=== PATIENT | male | born 1950 | race Caucasian/White ===

== ENCOUNTER 2017-12-14 14:50 | Emergency (ER) | payer SELFPAY ==
[2017-12-14] MEDS ORDERED: SODIUM CHLORIDE 0.9% 1,000 ML IV ONE (15:11)
[2017-12-14] MEDS ORDERED: ALBUTEROL SULF 2.5 MG/0.5ML(0.5%) NEB SOLN NEB ONE (15:15)
[2017-12-14] MEDS ORDERED: IPRATROPIUM BROM 0.5 MG/2.5ML INH SOL NEB ONE (15:15)
[2017-12-14 16:09] LABS: Basophils # (auto) 0.1 uL; Basophils % (auto) 0.6 % (0.0-2.0); Eosinophils # (auto) 0.1 uL; Eosinophils % (auto) 1.5 % (0.0-7.0); Hematocrit 34.7 % (41.0-53.0); Hemoglobin 11.9 g/dL (13.5-17.5); Lymphocytes # (auto) 0.9 uL; Lymphocytes % (auto) 10.2 % (10.0-50.0); Mean Corpuscular Hemoglobin 29.5 pg (28.0-32.0); Mean Corpuscular Hgb Conc. 34.2 g/dL (32.0-36.0); Mean Corpuscular Volume 86.3 fL (80.0-100.0); Monocytes # (auto) 0.6 uL; Monocytes % (auto) 7.2 % (0.0-12.0); Neutrophils # (auto) 6.9 uL; Neutrophils % (auto) 80.5 % (37.0-80.0); Platelet Count (auto) 177 10^3/uL (140-450); Red Blood Cells 4.02 10^6/uL (4.5-5.90); Red Cell Distribution Width 13.8 % (11.8-14.3); White Blood Cell 8.6 10^3/uL (4.4-10.8)
[2017-12-14 16:19] LABS: Potassium 4.1 mmol/L (3.5-5.1)
[2017-12-14 16:22] LABS: Albumin 3.1 g/dL (3.4-5.0); BUN/Creatinine Ratio 11.7; Magnesium 2.3 mg/dL (1.6-2.6)
[2017-12-14 16:25] LABS: Bilirubin, Total 0.8 mg/dL (0.2-1.0); Total Protein 6.4 g/dL (6.4-8.2)
[2017-12-14] MEDS ORDERED: FUROSEMIDE 40 MG/4 ML VIAL IV ONE (17:00)
[2017-12-14] MEDS ORDERED: SPIRONOLACTONE 25 MG TAB PO ONE (17:00)
== END 2017-12-14 17:48 | disposition home or self-care (01) ==
LOC: ER 14:50
DX: I42.9 Cardiomyopathy, unspecified (principal); I50.9 Heart failure, unspecified; I25.10 Atherosclerotic heart disease of native coronary artery without angina pectoris; R73.9 Hyperglycemia, unspecified; E46 Unspecified protein-calorie malnutrition; Z95.810 Presence of automatic (implantable) cardiac defibrillator; Z43.0 Encounter for attention to tracheostomy
CPT/HCPCS: 31500; 36415; 71045; 80053; 83735; 84443; 85025; 94640; 94761; 96374; 99285; J1940; J7030; 93005

== ENCOUNTER 2019-10-26 22:40 | Inpatient (IN) | payer OTHER ==
[~2019-10-26] VITALS: Ht 167.6 cm; Wt 71.1 kg
[2019-10-26 23:54] LABS: Urine WBC None Seen /hpf (0 - 3)
[2019-10-26 23:58] LABS: Urine Bacteria NONE SEEN /hpf (None Seen); Urine Blood Negative /uL (Negative); Urine Specific Gravity 1.021 (1.001-1.035)
[2019-10-27 00:01] LABS: Basophils # (auto) 0 10 ^3/uL (0-0.2); Basophils % (auto) 0.5 % (0.0-2.0); Eosinophils # (auto) 0 10 ^3/uL (0-0.8); Eosinophils % (auto) 0.6 % (0.0-7.0); Hematocrit 43.1 % (41.0-53.0); Hemoglobin 14.3 g/dL (13.5-17.5); Lymphocytes % (auto) 14.9 % (10.0-50.0); Mean Corpuscular Hemoglobin 29.9 pg (28.0-32.0); Mean Corpuscular Hgb Conc. 33.2 g/dL (32.0-36.0); Monocytes # (auto) 0.5 10 ^3/uL (0-1.3); Monocytes % (auto) 7.5 % (0.0-12.0); Neutrophils % (auto) 76.5 % (37.0-80.0); Platelet Count (auto) 151 10^3/uL (140-450); Red Blood Cells 4.79 10^6/uL (4.5-5.90); Red Cell Distribution Width 14.1 % (11.8-14.3); White Blood Cell 6.5 10^3/uL (4.4-10.8)
[2019-10-27 00:15] LABS: INR 1.16 (0.9-1.15)
[2019-10-27 00:20] LABS: Albumin 3.5 g/dL (3.4-5.0); Calcium 8.8 mg/dL (8.5-10.1); Potassium 3.9 mmol/L (3.5-5.1)
[2019-10-27 00:24] LABS: BUN/Creatinine Ratio 17.5
[2019-10-27 00:26] LABS: Bilirubin, Total 0.4 mg/dL (0.2-1.0)
[2019-10-27] MEDS ORDERED: ALBUTEROL SULF HFA 90MCG INH 200DOSE IN SCH ×2 (06:00→22:00)
[2019-10-27] MEDS ORDERED: EPINEPHrine HCL 0.5 ML NEB NEB ONE (10:30)
[2019-10-27] MEDS ORDERED: DexAMETHasone SOD PHOS 4 MG/1ML SDV INJ IV ONE (10:30)
[2019-10-27] MEDS ORDERED: AZITHROMYCIN 500MG/ 250ML 250 ML IV ONE (11:30)
[2019-10-27] MEDS ORDERED: LACTULOSE 20Gm/30ML SOLN PO PRN (15:00)
[2019-10-27] MEDS ORDERED: MORPHINE SULF INJ 2 MG/ML SYRINGE 1ML IV PRN ×2 (15:00)
[2019-10-27] MEDS ORDERED: PROMETHAZINE HCL 25 MG/ML 1ML IV PRN (15:00)
[2019-10-27] MEDS ORDERED: TEMAZEPAM 15 MG CAP PO PRN (15:00)
[2019-10-27] MEDS ORDERED: ACETAMINOPHEN 500 MG TAB PO PRN (15:00)
[2019-10-27] MEDS ORDERED: ALBUTEROL SULF 2.5 MG/0.5ML(0.5%) NEB SOLN NEB PRN (15:00)
[2019-10-27] MEDS ORDERED: NITROGLYCERIN 0.4 MG SL TAB SL PRN (15:00)
[2019-10-27] MEDS ORDERED: traMADol HCL 50 MG TAB PO PRN (15:00)
[2019-10-27 15:26] LABS: CRP High Sensitivity 0.17 mg/dL (< 0.3)
[2019-10-27] MEDS: SODIUM CHLORIDE 0.9% 1,000 ML IV SCH (15:42)
[2019-10-27] MEDS ORDERED: TACR1CAP19 PO (16:22)
[2019-10-27] MEDS ORDERED: PRE1T PO (16:22)
[2019-10-27 16:26] VITALS: BP 125/90
--- NOTE | 2019-10-27 17:11 | NUR ---
ARRIVAL NOTE: PATIENT ARRIVED TO UNIT IN WHEELCHAIR ON 2L NC. PATIENT COMPLAINS OF SOB AT TIMES. PATIENT IN NO S/S OF DISTRESS AT THIS TIME. A&OX4. ORIENTED TO [facility]. PATIENT ON TELE MONITOR #1. PATIENT UPDATED ON POC. ALL QUESTIONS ANSWERED BED IN LOWEST LOCKED POSITION WITH CALL LIGHT WITHIN REACH. WILL CONTINUE CARE.
--- NOTE | 2019-10-27 17:15 | NUR ---
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
[2019-10-27] MEDS ORDERED: TAMS0.4C36 PO (17:18)
[2019-10-27] MEDS ORDERED: PRAV20TA3 PO (17:18)
[2019-10-27] MEDS ORDERED: RIV20T PO (17:18)
[2019-10-27] MEDS ORDERED: MYCO250C PO (17:18)
--- NOTE | 2019-10-27 17:28 | NUR ---
SPOKE TO Sara NICHOLS, STATED OK TO RESUME TACROLIMUS, MYCLOPHENATE, PREDNISONE, AND XARELTO FROM HOME MEDICATION.
--- NOTE | 2019-10-27 17:55 | NUR ---
Patient received to unit Assumed care of patient, awake and alert. No S/S of distress/SOB or pain. Patient's respirations are even and unlabored, placed on NC 2L/min. Bed is set in lowest locked position with side rails up x 2 for safety and call light is within reach. Instructed on POC and to call for assist PRN, will continue to monitor for changes Q1hr and PRN.
[2019-10-27 18:00] VITALS: BP 131/89
[2019-10-27] MEDS ORDERED: RIVAROXABAN 20 MG TAB PO SCH (18:00)
[2019-10-27] MEDS ORDERED: ENOXAPARIN SOD 60 MG/0.6 ML SYRINGE SC SCH (18:00)
--- NOTE | 2019-10-27 18:15 | NUR ---
paged Dr. Sharma, to clarify order for lovenox per pharmacy. Awaiting call back.
--- NOTE | 2019-10-27 18:39 | NUR ---
Spoke to MD Per MD Edith DC lovenox order and azithromycin. Orders read back for verification, will proceed to carry out.
[2019-10-27] MEDS: RIVAROXABAN 20 MG TAB PO SCH (19:22)
--- NOTE | 2019-10-27 19:25 | NUR ---
Opening Shift Note Assumed care of patient after report from NIDHI Malik. Patient awake and alert. No S/S of distress/SOB or pain. Call light within reach, bed in lowest position x2 side rails. Instructed on POC and to call for assist PRN, will continue to monitor for changes Q1hr and PRN.
--- NOTE | 2019-10-27 19:38 | NUR ---
Spoke with pharmacy Spoke with pharmacy regarding patient own medication mycophenolate. POM not in patient cassette, not distributed by pharmacy. Patient has medication in personal calender down in pharmacy. Spoke with offsite pharmacy regarding dispensing patient own med from calender. Offsite pharmacy to leave message for in house pharmacy in morning. Unable to administer medication at scheduled time.
[2019-10-27 22:00] VITALS: BP 130/82
[2019-10-27] MEDS: MYCOPHENOLATE 180 MG PO SCH (22:00)
--- NOTE | 2019-10-27 22:25 | NUR ---
Respiratory note: MDI TX NOT GIVEN AT THIS TIME. MEDICATION ON HOLD.
[2019-10-27] MEDS: ATORVASTATIN 20 MG TAB PO SCH (22:30)
[2019-10-27] MEDS: METOPROLOL TARTRATE 25 MG TAB PO SCH (22:30)
[2019-10-27] MEDS: TACROLIMUS 1 MG CAP PO SCH (22:31)
[2019-10-27 23:18] LABS: Amphetamine Screen, Urine POSITIVE (NEGATIVE); Barbiturate Scree,Urine NEGATIVE (NEGATIVE); Benzodiazephine Screen, Urine NEGATIVE (NEGATIVE); Cannabinoid Screen, Urine NEGATIVE (NEGATIVE); Cocaine Screen, Urine NEGATIVE (NEGATIVE); Opiate Scree,Urine NEGATIVE (NEGATIVE); Phencyclidine Screen, Urine NEGATIVE (NEGATIVE)
[2019-10-28] VITALS (7 sets, daily range): BP systolic 104–140; BP diastolic 60–90
--- NOTE | 2019-10-28 01:58 | NUR ---
OOB Patient ambulating in hallway with steady even gait with continuous O2 via oxygen tank. Will continue to monitor.
[2019-10-28 03:13] LABS: Cholesterol 158 mg/dL (< 200)
[2019-10-28 03:15] LABS: HDL Cholesterol 61 mg/dL (40-59); LDL Cholesterol 82 mg/dL (< 100); Triglycerides 82 mg/dL (< 150)
[2019-10-28] MEDS: SODIUM CHLORIDE 0.9% 1,000 ML IV SCH ×2 (04:04→17:22)
--- NOTE | 2019-10-28 07:18 | NUR ---
Opening Shift Note Assumed care of patient, awake and alert. No S/S of distress/SOB or pain. Instructed on POC and to call for assist PRN, will continue to monitor for changes Q1hr and PRN. Patient is currently on NC at 2L/min, able to answer questions in full phrases without SOB, respirations are even and unlabored.
--- NOTE | 2019-10-28 07:35 | NUR ---
PT. ASSESSED FOR PRN. MN. TX'S, PT. IS ALERT AND ORIENTED. NO RESP. DISTRESS OR SOB NOTED. PT. STATES HIS BREATHING IS FINE AT THIS TIME. BS. ARE CLEAR AND DIMINISHED BILAT., HR=74,RR=20,SP02=98%. PT. STATES NO TX. IS NEEDED AT THIS TIME. PT. IS AWARE HE MAY CALL IF NEEDED.
[2019-10-28] MEDS: MYCOPHENOLATE 180 MG PO SCH ×2 (09:52→22:12)
[2019-10-28] MEDS: NITROGLYCERIN 0.2MG/HR TOPICAL PATCH TD SCH (09:55)
[2019-10-28] MEDS: METOPROLOL TARTRATE 25 MG TAB PO SCH ×2 (09:55→22:13)
[2019-10-28] MEDS: CHOLECALCIFEROL (VITD3) 1,000IU=25mCg TAB PO SCH (09:56)
[2019-10-28] MEDS: predniSONE 20 MG TAB PO SCH (09:57)
[2019-10-28] MEDS: TACROLIMUS 1 MG CAP PO SCH ×2 (09:57→22:13)
[2019-10-28] MEDS: ASPirin 81 mg TAB PO SCH (09:57)
[2019-10-28] MEDS: ZINC SULFATE 220mg CAP or TAB PO SCH (09:57)
[2019-10-28] MEDS ORDERED: AZITHROMYCIN 500MG/ 250ML 250 ML IV SCH (10:00)
[2019-10-28] MEDS ORDERED: predniSONE 5 MG TAB PO SCH (10:00)
[2019-10-28] MEDS: ASCORBIC ACID 1,000 MG TAB PO SCH (10:05)
--- NOTE | 2019-10-28 10:56 | NUR ---
MD rounding at bedside Dr. Berger, updated pt on POC. Notified patient of referral for a cardiology consult at this time.
--- NOTE | 2019-10-28 11:33 | NUR ---
at bedside for cardiology consult Dr. Shayan MD spoke to patient's , Milady at this time. Patient and patient's notified MD of request to be cleared for travel due to a vocal cord surgery in [facility] that is to be arranged this week. Per MD, patient is clear from a cardiology standpoint for travel, echocardiogram is to be completed during this hospital visit.
--- NOTE | 2019-10-28 11:52 | NUR ---
surface water technician at bedside
--- NOTE | 2019-10-28 12:54 | NUR ---
Urine sample sent to lab
--- NOTE | 2019-10-28 13:20 | NUR ---
MD Cruz rounding at bedside
[2019-10-28 13:26] LABS: Basophils # (auto) 0 10 ^3/uL (0-0.2); Basophils % (auto) 0.3 % (0.0-2.0); Eosinophils # (auto) 0 10 ^3/uL (0-0.8); Eosinophils % (auto) 0.3 % (0.0-7.0); Hematocrit 41.6 % (41.0-53.0); Hemoglobin 13.8 g/dL (13.5-17.5); Lymphocytes # (auto) 0.9 10 ^3/uL (0.4-5.4); Lymphocytes % (auto) 11.7 % (10.0-50.0); Mean Corpuscular Hemoglobin 29.6 pg (28.0-32.0); Mean Corpuscular Hgb Conc. 33.1 g/dL (32.0-36.0); Mean Corpuscular Volume 89.3 fL (80.0-100.0); Monocytes # (auto) 0.6 10 ^3/uL (0-1.3); Monocytes % (auto) 8.1 % (0.0-12.0); Neutrophils # (auto) 5.8 10 ^3/uL (1.6-8.6); Neutrophils % (auto) 79.6 % (37.0-80.0); Nucleated Red Blood Cells % 0.1 %; Platelet Count (auto) 143 10^3/uL (140-450); Red Blood Cells 4.65 10^6/uL (4.5-5.90); White Blood Cell 7.3 10^3/uL (4.4-10.8)
[2019-10-28 13:55] LABS: Albumin 3.1 g/dL (3.4-5.0); Calcium 8.6 mg/dL (8.5-10.1); Potassium 3.9 mmol/L (3.5-5.1)
[2019-10-28 13:58] LABS: BUN/Creatinine Ratio 22.7; Bilirubin, Total 0.6 mg/dL (0.2-1.0); Total Protein 6.4 g/dL (6.4-8.2)
[2019-10-28 14:26] LABS: Alcohol, Urine < 3.0 mg/dL (0-5); Amphetamine Screen, Urine NEGATIVE (NEGATIVE); Barbiturate Scree,Urine NEGATIVE (NEGATIVE); Benzodiazephine Screen, Urine NEGATIVE (NEGATIVE); Cannabinoid Screen, Urine NEGATIVE (NEGATIVE); Cocaine Screen, Urine NEGATIVE (NEGATIVE); Opiate Scree,Urine NEGATIVE (NEGATIVE); Phencyclidine Screen, Urine NEGATIVE (NEGATIVE)
--- NOTE | 2019-10-28 15:35 | NUR ---
Spoke with patient's After verifying information password updated her on current POC. Patient's , Milady states she would like to have the patient discharged tonight due to [facility] arrangements for surgery on patient. Milady states Dr. Hand of [facility] will perform surgery Tuesday. Patient's requests for Dr. Berger to call her. MD aware. Patient and patient's aware of option to leave AMA. At this time there is no order for discharge.
[2019-10-28] MEDS: ALBUTEROL SULF 2.5 MG/0.5ML(0.5%) NEB SOLN NEB SCH ×4 (15:58→22:16)
[2019-10-28] MEDS: IPRATROPIUM BROM 0.5 MG/2.5ML INH SOL NEB SCH ×4 (15:58→22:16)
[2019-10-28] MEDS: RIVAROXABAN 20 MG TAB PO SCH (17:20)
[2019-10-28] MEDS ORDERED: DEXT10CA PO (17:29)
[2019-10-28] MEDS ORDERED: ESCI20TA51 PO (17:29)
[2019-10-28] MEDS ORDERED: ASCO500C49 PO (17:29)
[2019-10-28] MEDS ORDERED: GUAI400T13 PO (17:29)
[2019-10-28] MEDS ORDERED: VITA400T4 PO (17:29)
[2019-10-28] MEDS ORDERED: TAMSULOSIN HYDROCHLORIDE 0.4 MG CAP PO SCH (18:00)
--- NOTE | 2019-10-28 18:37 | NUR ---
RT NOTE: PT REFUSED SCHEDULED MED NEB TX, PT STATED HE IS FINE RIGHT NOW AND ITS NOT NEEDED. PT ON 2LPM NC SPO2 96%. NO DISTRESS NOTED. PT NOTIFIED TO HAVE RT PAGED IF SOB OCCURS.
--- NOTE | 2019-10-28 19:30 | NUR ---
Opening Shift Note Assumed care of patient after getting report from NIDHI Malik. Patient awake and alert. No S/S of distress/SOB or pain. Call light within reach, bed in lowest position. Instructed on POC and to call for assist PRN, will continue to monitor for changes Q1hr and PRN.
--- NOTE | 2019-10-28 22:00 | NUR ---
Respiratory note: PT REFUSED SCHEDULED MED NEB TX, PT STATED HE IS FINE RIGHT NOW AND ITS NOT NEEDED. PT ON 2LPM NC SPO2 98%, RR 16, HR 77. NO S/S OF ANY DISTRESS NOTED. PT NOTIFIED TO HAVE RT PAGED IF SOB OCCURS.
[2019-10-28] MEDS: ATORVASTATIN 20 MG TAB PO SCH (22:13)
[2019-10-29] MEDS: ALBUTEROL SULF 2.5 MG/0.5ML(0.5%) NEB SOLN NEB SCH ×5 (02:00→13:54)
[2019-10-29] MEDS: IPRATROPIUM BROM 0.5 MG/2.5ML INH SOL NEB SCH ×5 (02:00→13:54)
--- NOTE | 2019-10-29 02:03 | NUR ---
Respiratory note: PT REFUSED SCHEDULED MED NEB TX, PT STATED HE IS FINE RIGHT NOW AND ITS NOT NEEDED. PT ON 2LPM NC SPO2 98%. NO S/S OF ANY DISTRESS NOTED. PT NOTIFIED TO HAVE RT PAGED IF SOB OCCURS.
[2019-10-29 05:19] VITALS: BP 132/79
[2019-10-29] MEDS: SODIUM CHLORIDE 0.9% 1,000 ML IV SCH (05:54)
--- NOTE | 2019-10-29 08:00 | NUR ---
Received pt resting in bed, call light within reach, pt reported infiltration to rt forearm IV, d/c IV and applied a heat pad, pt and on the phone stated to hold off on inserting a new IV because if pt is not transfer today to [facility] pt's will sheepskin pickler pt at 1300. Pt and pt's informed that case work aide and doctor will be inform so they can call pt's .
[2019-10-29 09:00] VITALS: BP 111/68
--- NOTE | 2019-10-29 09:30 | NUR ---
I called [facility] transfer center [phone]-they were not aware of the need to transfer this patient. I faxed the transfer order and clinical information to [phone] per her request. She said Dr. Soilz's phone number is [phone] and he needs to tell the transfer center that he wants this patient to be transferred.
[2019-10-29] MEDS: MYCOPHENOLATE 180 MG PO SCH (10:04)
[2019-10-29] MEDS: predniSONE 20 MG TAB PO SCH (10:04)
[2019-10-29] MEDS: ASPirin 81 mg TAB PO SCH (10:04)
[2019-10-29] MEDS: ZINC SULFATE 220mg CAP or TAB PO SCH (10:05)
[2019-10-29] MEDS: TACROLIMUS 1 MG CAP PO SCH (10:05)
[2019-10-29] MEDS: ASCORBIC ACID 1,000 MG TAB PO SCH (10:06)
[2019-10-29] MEDS: CHOLECALCIFEROL (VITD3) 1,000IU=25mCg TAB PO SCH (10:06)
[2019-10-29] MEDS: METOPROLOL TARTRATE 25 MG TAB PO SCH (10:06)
[2019-10-29] MEDS: NITROGLYCERIN 0.2MG/HR TOPICAL PATCH TD SCH (12:15)
--- NOTE | 2019-10-29 12:30 | NUR ---
Dr. Berger at bed side to see pt, doctor called pt's Milady at [phone] and discussed the plan of care with pt and pt' .
--- NOTE | 2019-10-29 12:47 | NUR ---
I called [facility] transfer center [phone] and spoke with Germania, she said their MD has accepted this patient, they are just working on financial clearance-she will give me a call back. I called [facility] [employer] [facility] [phone] and left message regarding the transfer, requesting authorization for hospital as well as transportation. I spoke with patient's nurse Lou-asked her to make sure chart is copied and all radiology procedures placed on a disc.
[2019-10-29 13:00] VITALS: BP 132/77
--- NOTE | 2019-10-29 13:46 | NUR ---
I spoke with Amy at [facility], authorization number for [place] is [id number], she will call me back with authorization for [facility].
--- NOTE | 2019-10-29 14:45 | NUR ---
Patient will be going to [address] [place] [address] room 68, nurse to call report to [phone] 30 minutes prior to fern picker time. [facility] authorization (from [facility]) [id number]. I called [facility] ([phone]) and spoke with Soco-she said they will try for 1600 fern picker time but may not arrive here until 1700. I spoke with nurse Lou and provided her with [facility] room information as well as [facility] fern picker time.
[2019-10-29 15:24] VITALS: BP 132/77
--- NOTE | 2019-10-29 15:30 | NUR ---
Called [facility] and gave report to NIDHI George, pt will be going to room 6824, pt will be pick out hand at 1600. Pt's Darshana Guan aware of transfer.
--- NOTE | 2019-10-29 16:00 | NUR ---
Discharge instructions given as ordered. Encourage to follow up with PMD as instructed. All questions and concerns addressed. Patient verbalized understanding. Medication reconciliation form completed and copy given to patient. Home medications held in Pharmacy returned to patient, no needed vaccines to be given. Pt will be d/c with new IV placed to left forearm 22 G.
--- NOTE | 2019-10-29 16:15 | NUR ---
Received call from [facility] to inform that the greens picker time will be delayed 90 min. Pt's Milady and [facility] informed.
[2019-10-29 16:47] VITALS: BP 119/65
--- NOTE | 2019-10-29 17:30 | NUR ---
Transport here to tile picker pt, report given to ambulance, Telemetry unit returned to ICU. Patient taken to vehicle via gurney with all personal belongings, accompanied by transport staff, family member informed. No distress noted at time of departure.
== END 2019-10-29 17:30 | disposition short-term general hospital (02) | DRG 206 ==
LOC: EDBD 22:40 → ER 22:44 → TELE 22:45 → TELE-CENTR 10-27 17:55
PROVIDERS: ADMIT Internal Medicine; ATTEND Internal Medicine
DX: J95.09 Other tracheostomy complication (principal); J98.11 Atelectasis; E44.0 Moderate protein-calorie malnutrition; I25.811 Atherosclerosis of native coronary artery of transplanted heart without angina pectoris; S19.83XA Other specified injuries of vocal cord, initial encounter; R06.1 Stridor; I95.9 Hypotension, unspecified; F41.9 Anxiety disorder, unspecified; F32.9 Major depressive disorder, single episode, unspecified; R73.9 Hyperglycemia, unspecified; F19.10 Other psychoactive substance abuse, uncomplicated; E78.5 Hyperlipidemia, unspecified; I11.0 Hypertensive heart disease with heart failure; I50.9 Heart failure, unspecified; R73.03 Prediabetes; X58.XXXA Exposure to other specified factors, initial encounter; Z79.899 Other long term (current) drug therapy; Y93.89 Activity, other specified; Y92.89 Other specified places as the place of occurrence of the external cause; Y99.8 Other external cause status; Z03.818 Encounter for observation for suspected exposure to other biological agents ruled out; Z68.25 Body mass index [BMI] 25.0-25.9, adult
CPT/HCPCS: 36415; 70490; 71045; 80053; 80061; 80307; 81001; 82550; 83036; 83735; 83880; 84443; 84484; 85025; 85379; 85610; 85652; 86141; 87070; 87804; 87880; 93005; 93306; 94640; 96365; 96366; 96375; G0378; J1100; J7507

== ENCOUNTER 2021-05-14 17:37 | Inpatient (IN) | payer OTHER ==
[~2021-05-14] VITALS: Ht 170.2 cm; Wt 76.5 kg
[~2021-05-14 17:37] MED LIST: ASCO500C49 PO; DEXT10CA PO; ESCI-34 PO; GUAI400T13 PO; MYCO250C PO; PRAV20TA3 PO; PRE1T PO; RIV20T PO; TACR1CAP19 PO; TAMS0.4C36 PO; VITA400T4 PO
[2021-05-14 19:58] LABS: Basophils # (auto) 0 10 ^3/uL (0-0.2); Basophils % (auto) 0.5 % (0.0-2.0); Eosinophils # (auto) 0.1 10 ^3/uL (0-0.8); Eosinophils % (auto) 2.1 % (0.0-7.0); Hematocrit 43.8 % (41.0-53.0); Hemoglobin 14.7 g/dL (13.5-17.5); Lymphocytes # (auto) 0.2 10 ^3/uL (0.4-5.4); Lymphocytes % (auto) 2.4 % (10.0-50.0); Mean Corpuscular Hemoglobin 29.3 pg (28.0-32.0); Mean Corpuscular Hgb Conc. 33.6 g/dL (32.0-36.0); Mean Corpuscular Volume 87.3 fL (80.0-100.0); Monocytes # (auto) 0.4 10 ^3/uL (0-1.3); Monocytes % (auto) 5.9 % (0.0-12.0); Neutrophils % (auto) 89.1 % (37.0-80.0); Nucleated Red Blood Cells % 0.1 %; Red Blood Cells 5.01 10^6/uL (4.5-5.90); White Blood Cell 6.7 10^3/uL (4.4-10.8)
[2021-05-14 20:16] LABS: Albumin 3.4 g/dL (3.4-5.0); BUN/Creatinine Ratio 12.3; Calcium 9.2 mg/dL (8.5-10.1); Potassium 5.1 mmol/L (3.5-5.1)
[2021-05-14 20:22] LABS: Bilirubin, Total 0.6 mg/dL (0.2-1.0); Total Protein 8.1 g/dL (6.4-8.2)
[2021-05-14] MEDS ORDERED: IOHEXOL 350 MG/ML 100ML IJ ONE (20:52)
[2021-05-14] MEDS ORDERED: cefTRIAXone 1GM/50ML D5W 50 ML IV ONE (23:45)
[2021-05-14] MEDS ORDERED: AZITHROMYCIN 250 MG TAB PO ONE (23:45)
[2021-05-15] VITALS (7 sets, daily range): BP systolic 97–133; BP diastolic 53–76
[2021-05-15] MEDS ORDERED: ACETAMINOPHEN 500 MG TAB PO PRN (01:00)
[2021-05-15] MEDS ORDERED: DOCUSATE SOD 100 MG CAP PO PRN (01:00)
[2021-05-15] MEDS ORDERED: MORPHINE SULFATE INJECTION 2 MG/ML SYRG IV PRN (01:00)
[2021-05-15] MEDS ORDERED: NITROGLYCERIN 0.4 MG SL TAB SL PRN (01:00)
[2021-05-15 01:59] LABS: Potassium 3.8 mmol/L (3.5-5.1)
[2021-05-15 02:02] LABS: Albumin 3.1 g/dL (3.4-5.0); BUN/Creatinine Ratio 12.9; Calcium 8.7 mg/dL (8.5-10.1); Magnesium 1.8 mg/dL (1.6-2.6)
[2021-05-15 02:08] LABS: Bilirubin, Total 0.4 mg/dL (0.2-1.0); Total Protein 7.3 g/dL (6.4-8.2)
[2021-05-15] MEDS: SODIUM CHLOR 0.9% PF (SALINE LOCK) 10ML VIAL/SYR IV SCH ×3 (06:15→21:54)
[2021-05-15 08:26] LABS: Basophils # (auto) 0 10 ^3/uL (0-0.2); Basophils % (auto) 0.1 % (0.0-2.0); Eosinophils # (auto) 0 10 ^3/uL (0-0.8); Eosinophils % (auto) 0.8 % (0.0-7.0); Hematocrit 42.7 % (41.0-53.0); Hemoglobin 13.9 g/dL (13.5-17.5); Lymphocytes # (auto) 0.1 10 ^3/uL (0.4-5.4); Lymphocytes % (auto) 2.6 % (10.0-50.0); Mean Corpuscular Hemoglobin 28.8 pg (28.0-32.0); Mean Corpuscular Hgb Conc. 32.5 g/dL (32.0-36.0); Mean Corpuscular Volume 88.6 fL (80.0-100.0); Monocytes # (auto) 0.9 10 ^3/uL (0-1.3); Monocytes % (auto) 17.8 % (0.0-12.0); Neutrophils # (auto) 3.9 10 ^3/uL (1.6-8.6); Neutrophils % (auto) 78.7 % (37.0-80.0); Nucleated Red Blood Cells % 0.1 %; Red Blood Cells 4.82 10^6/uL (4.5-5.90); Red Cell Distribution Width 13.6 % (11.8-14.3); White Blood Cell 4.9 10^3/uL (4.4-10.8)
[2021-05-15 08:36] LABS: Albumin 3.2 g/dL (3.4-5.0); Calcium 8.9 mg/dL (8.5-10.1); Potassium 4.2 mmol/L (3.5-5.1)
[2021-05-15 08:42] LABS: BUN/Creatinine Ratio 12.4; Bilirubin, Total 0.4 mg/dL (0.2-1.0); Total Protein 7.6 g/dL (6.4-8.2)
[2021-05-15] MEDS: MULTIPLE VITAMIN TAB PO SCH (09:44)
[2021-05-15] MEDS: CHOLECALCIFEROL (VITD3) 2,000 UNIT CAP/TAB PO SCH (09:44)
[2021-05-15] MEDS: ZINC SULFATE 220mg CAP or TAB PO SCH (09:44)
[2021-05-15] MEDS: cefTRIAXone 1GM/50ML D5W 50 ML IV SCH (09:44)
[2021-05-15] MEDS: DexAMETHasone SOD PHOS 10MG/1ML VIAL INJ IV SCH (09:45)
[2021-05-15] MEDS: FAMOTIDINE (10MG/ML) 2ML VL IV SCH ×2 (09:45→21:53)
[2021-05-15] MEDS ORDERED: ASCORBIC ACID 1,000 MG TAB PO SCH (10:00)
[2021-05-15] MEDS ORDERED: ENOXAPARIN SOD 40 MG/0.4 ML SYRINGE SC SCH ×2 (10:00→22:00)
[2021-05-15] MEDS: AZITHROMYCIN 500MG/ 250ML 250 ML IV SCH (10:59)
[2021-05-15] MEDS: ONDANSETRON HCL 4 MG/2 ML VIAL IV PRN (11:28)
[2021-05-15] MEDS ORDERED: REMDESIVIR PER PHARMACY 0 ML IV SCH (12:45)
[2021-05-15] MEDS: ACETAMINOPHEN 500 MG TAB PO PRN (13:29)
[2021-05-15] MEDS ORDERED: REMDESIVIR 200 MG in NS 210ml LOADING DOSE ADULT IV ONE (14:30)
[2021-05-15] MEDS: HYDROcodone-ACET 5/325MG TAB PO PRN (16:38)
[2021-05-15] MEDS ORDERED: guaiFENesin-DM 100/10mg/5ml SYR PO PRN (20:00)
[2021-05-15] MEDS: BUDESONIDE (INHALATION) 180 MCG IH IN SCH (22:00)
[2021-05-15] MEDS: TACROLIMUS 1 MG CAP PO SCH (22:18)
[2021-05-15] MEDS: MYCOPHENOLATE 250 MG CAP PO SCH (22:18)
[2021-05-16 05:00] VITALS: BP 116/65
[2021-05-16] MEDS: SODIUM CHLOR 0.9% PF (SALINE LOCK) 10ML VIAL/SYR IV SCH ×3 (05:21→21:18)
[2021-05-16] MEDS: ACETAMINOPHEN 500 MG TAB PO PRN (06:45)
[2021-05-16 07:24] LABS: Basophils # (auto) 0 10 ^3/uL (0-0.2); Basophils % (auto) 0.2 % (0.0-2.0); Eosinophils # (auto) 0 10 ^3/uL (0-0.8); Hematocrit 37.8 % (41.0-53.0); Hemoglobin 12.8 g/dL (13.5-17.5); Lymphocytes # (auto) 0.2 10 ^3/uL (0.4-5.4); Lymphocytes % (auto) 4.7 % (10.0-50.0); Mean Corpuscular Hemoglobin 29.3 pg (28.0-32.0); Mean Corpuscular Hgb Conc. 33.9 g/dL (32.0-36.0); Mean Corpuscular Volume 86.4 fL (80.0-100.0); Monocytes # (auto) 0.5 10 ^3/uL (0-1.3); Monocytes % (auto) 11.2 % (0.0-12.0); Neutrophils # (auto) 3.7 10 ^3/uL (1.6-8.6); Neutrophils % (auto) 83.9 % (37.0-80.0); Red Blood Cells 4.38 10^6/uL (4.5-5.90); Red Cell Distribution Width 13.4 % (11.8-14.3); White Blood Cell 4.5 10^3/uL (4.4-10.8)
[2021-05-16 07:30] LABS: Potassium 4.1 mmol/L (3.5-5.1)
[2021-05-16 07:38] LABS: BUN/Creatinine Ratio 17.3; Bilirubin, Total 0.2 mg/dL (0.2-1.0); Calcium 8.2 mg/dL (8.5-10.1); Total Protein 6.6 g/dL (6.4-8.2)
[2021-05-16 07:55] VITALS: BP 110/69
[2021-05-16 09:00] VITALS: BP 110/69
[2021-05-16] MEDS: FAMOTIDINE (10MG/ML) 2ML VL IV SCH (09:12)
[2021-05-16] MEDS: cefTRIAXone 1GM/50ML D5W 50 ML IV SCH (09:12)
[2021-05-16] MEDS: DexAMETHasone SOD PHOS 10MG/1ML VIAL INJ IV SCH (09:12)
[2021-05-16] MEDS: ZINC SULFATE 220mg CAP or TAB PO SCH (09:13)
[2021-05-16] MEDS: CHOLECALCIFEROL (VITD3) 2,000 UNIT CAP/TAB PO SCH (09:13)
[2021-05-16] MEDS: MULTIPLE VITAMIN TAB PO SCH (09:13)
[2021-05-16] MEDS: ASCORBIC ACID 500 MG TAB PO SCH ×2 (09:14→21:17)
[2021-05-16] MEDS: TACROLIMUS 1 MG CAP PO SCH ×2 (09:14→21:17)
[2021-05-16] MEDS: MYCOPHENOLATE 250 MG CAP PO SCH ×2 (09:15→21:17)
[2021-05-16] MEDS: AZITHROMYCIN 500MG/ 250ML 250 ML IV SCH (10:55)
[2021-05-16] MEDS: IVERMECTIN 3 MG TAB PO SCH (11:00)
[2021-05-16] MEDS: BUDESONIDE (INHALATION) 180 MCG IH IN SCH ×2 (11:03→19:10)
[2021-05-16] MEDS: ALBUTEROL SULF HFA 90MCG INH 200DOSE IN PRN ×2 (11:03→19:10)
[2021-05-16] MEDS ORDERED: IVERMECTIN 3 MG TAB PO ONE (11:15)
[2021-05-16 13:00] VITALS: BP 125/75
[2021-05-16] MEDS: REMDESIVIR 100mg 100 MG in SODIUM CHL 0.9% 230 ML IV SCH (15:12)
[2021-05-16 17:00] VITALS: BP 135/85
[2021-05-16] MEDS: RIVAROXABAN 20 MG TAB PO SCH (17:49)
[2021-05-16] MEDS: TAMSULOSIN HYDROCHLORIDE 0.4 MG CAP PO SCH (17:49)
[2021-05-16 22:00] VITALS: BP 113/77
[2021-05-17 05:00] VITALS: BP 113/63
[2021-05-17] MEDS: SODIUM CHLOR 0.9% PF (SALINE LOCK) 10ML VIAL/SYR IV SCH ×3 (05:50→21:33)
[2021-05-17] MEDS: ALBUTEROL SULF HFA 90MCG INH 200DOSE IN PRN (07:07)
[2021-05-17] MEDS: BUDESONIDE (INHALATION) 180 MCG IH IN SCH ×2 (07:07→23:40)
[2021-05-17 09:00] VITALS: BP 112/79
[2021-05-17] MEDS: AZITHROMYCIN 500MG/ 250ML 250 ML IV SCH ×2 (10:00→16:37)
[2021-05-17] MEDS: HYDROcodone-ACET 5/325MG TAB PO PRN (10:16)
[2021-05-17] MEDS: ONDANSETRON HCL 4 MG/2 ML VIAL IV PRN (10:55)
[2021-05-17 13:00] VITALS: BP 102/67
[2021-05-17] MEDS: cefTRIAXone 1GM/50ML D5W 50 ML IV SCH (16:36)
[2021-05-17] MEDS: DexAMETHasone SOD PHOS 10MG/1ML VIAL INJ IV SCH (16:36)
[2021-05-17] MEDS: ZINC SULFATE 220mg CAP or TAB PO SCH (16:37)
[2021-05-17] MEDS: MYCOPHENOLATE 250 MG CAP PO SCH ×3 (16:37→21:45)
[2021-05-17] MEDS: MULTIPLE VITAMIN TAB PO SCH (16:38)
[2021-05-17] MEDS: IVERMECTIN 3 MG TAB PO SCH (16:38)
[2021-05-17] MEDS: TACROLIMUS 1 MG CAP PO SCH ×3 (16:38→21:45)
[2021-05-17] MEDS: PANTOPRAZOLE 40 MG TAB PO SCH (16:38)
[2021-05-17] MEDS: ASCORBIC ACID 500 MG TAB PO SCH ×3 (16:39→21:46)
[2021-05-17] MEDS: CHOLECALCIFEROL (VITD3) 2,000 UNIT CAP/TAB PO SCH (16:39)
[2021-05-17] MEDS: REMDESIVIR 100mg 100 MG in SODIUM CHL 0.9% 230 ML IV SCH (16:40)
[2021-05-17 17:00] VITALS: BP 106/70
[2021-05-17] MEDS: TAMSULOSIN HYDROCHLORIDE 0.4 MG CAP PO SCH (18:09)
[2021-05-17] MEDS: RIVAROXABAN 20 MG TAB PO SCH (18:10)
[2021-05-17 22:00] VITALS: BP 118/80
[2021-05-18 01:34] VITALS: BP 118/80
[2021-05-18] MEDS: HYDROcodone-ACET 5/325MG TAB PO PRN (03:40)
[2021-05-18 05:00] VITALS: BP 99/67
[2021-05-18] MEDS: SODIUM CHLOR 0.9% PF (SALINE LOCK) 10ML VIAL/SYR IV SCH ×3 (05:11→21:06)
[2021-05-18 06:27] LABS: Potassium 4.2 mmol/L (3.5-5.1)
[2021-05-18 06:38] LABS: Albumin 2.6 g/dL (3.4-5.0); BUN/Creatinine Ratio 22.8; Bilirubin, Total 0.2 mg/dL (0.2-1.0); Total Protein 6.6 g/dL (6.4-8.2)
[2021-05-18 08:47] VITALS: BP 109/78
[2021-05-18] MEDS: MYCOPHENOLATE 250 MG CAP PO SCH ×2 (09:07→21:04)
[2021-05-18] MEDS: TACROLIMUS 1 MG CAP PO SCH ×2 (09:07→21:04)
[2021-05-18] MEDS: cefTRIAXone 1GM/50ML D5W 50 ML IV SCH (09:07)
[2021-05-18] MEDS: DexAMETHasone SOD PHOS 10MG/1ML VIAL INJ IV SCH (09:07)
[2021-05-18] MEDS: IVERMECTIN 3 MG TAB PO SCH (09:08)
[2021-05-18] MEDS: AZITHROMYCIN 500MG/ 250ML 250 ML IV SCH (11:05)
[2021-05-18] MEDS: ZINC SULFATE 220mg CAP or TAB PO SCH (11:07)
[2021-05-18] MEDS: MULTIPLE VITAMIN TAB PO SCH (11:08)
[2021-05-18] MEDS: CHOLECALCIFEROL (VITD3) 2,000 UNIT CAP/TAB PO SCH (11:08)
[2021-05-18] MEDS: ASCORBIC ACID 500 MG TAB PO SCH ×2 (11:08→21:06)
[2021-05-18] MEDS: PANTOPRAZOLE 40 MG TAB PO SCH (11:08)
[2021-05-18 12:35] VITALS: BP 118/83
[2021-05-18] MEDS: REMDESIVIR 100mg 100 MG in SODIUM CHL 0.9% 230 ML IV SCH (14:30)
[2021-05-18] MEDS: BUDESONIDE (INHALATION) 180 MCG IH IN SCH ×2 (15:33→21:42)
[2021-05-18] MEDS: ALBUTEROL SULF HFA 90MCG INH 200DOSE IN PRN ×2 (15:33→21:42)
[2021-05-18 16:46] VITALS: BP 138/88
[2021-05-18] MEDS: RIVAROXABAN 20 MG TAB PO SCH (17:38)
[2021-05-18] MEDS: TAMSULOSIN HYDROCHLORIDE 0.4 MG CAP PO SCH (17:38)
[2021-05-18] MEDS ORDERED: ACCU-CHEK COMFORT CURVE STRIP VI PRN (23:00)
[2021-05-19 05:00] VITALS: BP 107/63
[2021-05-19] MEDS: SODIUM CHLOR 0.9% PF (SALINE LOCK) 10ML VIAL/SYR IV SCH ×3 (05:33→22:37)
[2021-05-19] MEDS: ALBUTEROL SULF HFA 90MCG INH 200DOSE IN PRN ×2 (09:00→21:40)
[2021-05-19] MEDS: BUDESONIDE (INHALATION) 180 MCG IH IN SCH ×2 (09:01→21:40)
[2021-05-19] MEDS: cefTRIAXone 1GM/50ML D5W 50 ML IV SCH (09:28)
[2021-05-19] MEDS: DexAMETHasone SOD PHOS 10MG/1ML VIAL INJ IV SCH (09:28)
[2021-05-19] MEDS: MYCOPHENOLATE 250 MG CAP PO SCH ×2 (09:29→22:38)
[2021-05-19] MEDS: IVERMECTIN 3 MG TAB PO SCH (09:29)
[2021-05-19] MEDS: TACROLIMUS 1 MG CAP PO SCH ×2 (09:29→22:37)
[2021-05-19] MEDS: CHOLECALCIFEROL (VITD3) 2,000 UNIT CAP/TAB PO SCH (10:00)
[2021-05-19] MEDS: MULTIPLE VITAMIN TAB PO SCH (10:00)
[2021-05-19] MEDS: ASCORBIC ACID 500 MG TAB PO SCH ×2 (10:00→22:38)
[2021-05-19] MEDS: PANTOPRAZOLE 40 MG TAB PO SCH (10:00)
[2021-05-19] MEDS: ZINC SULFATE 220mg CAP or TAB PO SCH (10:00)
[2021-05-19 10:40] LABS: Basophils # (auto) 0 10 ^3/uL (0-0.2); Basophils % (auto) 0.5 % (0.0-2.0); Eosinophils # (auto) 0 10 ^3/uL (0-0.8); Eosinophils % (auto) 0.3 % (0.0-7.0); Hematocrit 42.1 % (41.0-53.0); Lymphocytes # (auto) 0.4 10 ^3/uL (0.4-5.4); Lymphocytes % (auto) 17.4 % (10.0-50.0); Mean Corpuscular Hemoglobin 28.9 pg (28.0-32.0); Mean Corpuscular Hgb Conc. 33.3 g/dL (32.0-36.0); Mean Corpuscular Volume 86.6 fL (80.0-100.0); Monocytes # (auto) 0.2 10 ^3/uL (0-1.3); Monocytes % (auto) 9.6 % (0.0-12.0); Neutrophils # (auto) 1.8 10 ^3/uL (1.6-8.6); Neutrophils % (auto) 72.2 % (37.0-80.0); Nucleated Red Blood Cells % 0.1 %; Red Blood Cells 4.86 10^6/uL (4.5-5.90); Red Cell Distribution Width 13.4 % (11.8-14.3); White Blood Cell 2.4 10^3/uL (4.4-10.8)
[2021-05-19] MEDS: AZITHROMYCIN 500MG/ 250ML 250 ML IV SCH (11:03)
[2021-05-19 11:04] LABS: Potassium 3.8 mmol/L (3.5-5.1)
[2021-05-19 11:10] LABS: Albumin 2.9 g/dL (3.4-5.0); BUN/Creatinine Ratio 22.3; Bilirubin, Total 0.2 mg/dL (0.2-1.0); CRP High Sensitivity 0.72 mg/dL (< 0.3); Calcium 8.2 mg/dL (8.5-10.1); Total Protein 6.4 g/dL (6.4-8.2)
[2021-05-19] MEDS ORDERED: LOPERAMIDE 1 mg/7.5ml ORAL soln PO PRN (11:45)
[2021-05-19] MEDS ORDERED: LOPERAMIDE 1 mg/7.5ml ORAL soln PO ONE (11:45)
[2021-05-19 13:00] VITALS: BP 99/53
[2021-05-19] MEDS ORDERED: FUROSEMIDE 40 MG/4 ML VIAL IV ONE (14:00)
[2021-05-19] MEDS ORDERED: POTASSIUM CHL 10 Meq TABLET PO ONE (14:00)
[2021-05-19] MEDS: REMDESIVIR 100mg 100 MG in SODIUM CHL 0.9% 230 ML IV SCH (14:20)
[2021-05-19 17:00] VITALS: BP 125/86
[2021-05-19] MEDS: TAMSULOSIN HYDROCHLORIDE 0.4 MG CAP PO SCH (17:31)
[2021-05-19] MEDS: RIVAROXABAN 20 MG TAB PO SCH (17:31)
[2021-05-20 05:00] VITALS: BP 106/68
[2021-05-20] MEDS: SODIUM CHLOR 0.9% PF (SALINE LOCK) 10ML VIAL/SYR IV SCH ×2 (06:08→14:47)
[2021-05-20] MEDS ORDERED: ALBUAER3 IN (08:39)
[2021-05-20] MEDS ORDERED: ZINC220T6 PO (08:39)
[2021-05-20] MEDS ORDERED: CHOL1CAP47 PO (08:39)
[2021-05-20] MEDS ORDERED: ASCO500T11 PO (08:39)
[2021-05-20 08:55] VITALS: BP 122/90
[2021-05-20] MEDS: ALBUTEROL SULF HFA 90MCG INH 200DOSE IN PRN (09:35)
[2021-05-20] MEDS: BUDESONIDE (INHALATION) 180 MCG IH IN SCH (09:35)
[2021-05-20] MEDS: MYCOPHENOLATE 250 MG CAP PO SCH (09:49)
[2021-05-20] MEDS: DexAMETHasone SOD PHOS 10MG/1ML VIAL INJ IV SCH (09:50)
[2021-05-20] MEDS: TACROLIMUS 1 MG CAP PO SCH (09:50)
[2021-05-20] MEDS: CHOLECALCIFEROL (VITD3) 2,000 UNIT CAP/TAB PO SCH (09:52)
[2021-05-20] MEDS: ZINC SULFATE 220mg CAP or TAB PO SCH (09:52)
[2021-05-20] MEDS: IVERMECTIN 3 MG TAB PO SCH (09:53)
[2021-05-20] MEDS: PANTOPRAZOLE 40 MG TAB PO SCH (09:53)
[2021-05-20] MEDS: ASCORBIC ACID 500 MG TAB PO SCH (09:53)
[2021-05-20] MEDS: MULTIPLE VITAMIN TAB PO SCH (10:05)
[2021-05-20 13:14] VITALS: BP 108/72
[2021-05-20 14:55] VITALS: BP 112/84
[2021-05-20 17:00] VITALS: BP 124/77
== END 2021-05-20 17:10 | disposition home or self-care (01) | DRG 177 ==
LOC: ER 17:37 → OVERFLOW 05-15 00:52 → EAST 05-15 05:09 → TELE-EAST 05-18 04:47
PROVIDERS: ADMIT Nurse Practitioner Family; ATTEND Internal Medicine
PROC: XW033E5 Introduction of Remdesivir Anti-infective into Peripheral Vein, Percutaneous Approach, New Technology Group 5 (ICD-10-PCS; principal; 2021-05-15)
DX: U07.1 COVID-19 (principal); J12.82 Pneumonia due to coronavirus disease 2019; J96.01 Acute respiratory failure with hypoxia; J44.0 Chronic obstructive pulmonary disease with (acute) lower respiratory infection; J98.11 Atelectasis; Z94.1 Heart transplant status; I11.0 Hypertensive heart disease with heart failure; F32.A Depression, unspecified; I25.10 Atherosclerotic heart disease of native coronary artery without angina pectoris; I50.9 Heart failure, unspecified; Z79.899 Other long term (current) drug therapy; Z93.0 Tracheostomy status; Z82.61 Family history of arthritis
CPT/HCPCS: 36415; 36600; 70450; 71045; 71275; 80053; 82728; 82805; 82962; 83615; 83735; 84484; 85025; 85379; 86141; 87426; 93005; 94640; 96365; G0378; J0696; J1100; J2405; J3490; J7507; J7517